=== PATIENT | male | born 1965 | race Caucasian/White ===

== ENCOUNTER 2017-04-11 17:06 | Emergency (ER) | payer OTHER ==
--- NOTE | 2017-04-11 17:27 | CPEKG ---
Heart Rate: 103 RR Interval: 583 P-R Interval: 160 QRSD Interval: 76 QT Interval: 324 QTC Interval: 424 P [place]: 84 QRS [place]: 58 T Wave [place]: 64 EKG Severity - OTHERWISE NORMAL ECG - EKG Impression: SINUS TACHYCARDIA Electronically Signed By: Daniele Akhtar 11-Apr-2017 23:05:56
--- NOTE | 2017-04-11 17:44 | EDPHY ---
HPI/HX/ROS/PE/MDM Narrative: CHIEF COMPLAINT: Chest pain, dyspnea HPI: This patient is a 51-year-old male who presents to the Emergency Department complaining of acute onset dyspnea and chest pain beginning when he stretched his back this afternoon, exacerbating his chronic thoracic back pain. He reports a variety of associated complaints including jaw and tooth pain, headache, and dizziness beginning at the time of the injury and waxing and waning over time. He reports prior episodes of similar chest pain and dyspnea which were all associated with his chronic back pain; last was three years prior to arrival. He states that today's chest pain is more severe than prior episodes. He is evaluated and treated for chronic pain at the [facility]. He takes 20mg methadone PRN. He has not had a prior MRI of his thoracic back. REVIEW OF SYSTEMS: Aside from elements discussed in the HPI, a comprehensive 10-point review of systems was reviewed and is negative. PMH: Chronic thoracic back pain (severity 4/10), chronic fatigue syndrome, PTSD. SOCIAL HISTORY: [place]. 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 PHYSICAL EXAM: General:Patient is alert, in no acute distress. ENT:Eyes are normal to inspection. ENT inspection normal. Neck: Normal inspection. Full range of motion. Respiratory:No respiratory distress. Breath sounds normal bilaterally. Cardiovascular: Regular rate and rhythm. Strong peripheral pulses. Normal cap refill. Abdomen:The abdomen is nontender to palpation. There are no peritoneal signs. There are normal bowel sounds. Back: Normal to inspection. No tenderness to palpation. Skin: Normal color. No rash. Warm and dry. Extremities: Normal appearance. Full range of motion. Neuro: Oriented x3. Normal motor function. Normal sensory function. ED Course: This 51-year-old male presents with complaints of dyspnea and chest pain that he attributes to an exacerbation of his chronic thoracic back pain. His complaints appeared acutely this afternoon and are exertional in nature. He is alert and well appearing at time of arrival. O2 sat is 98% on RA. There are no significant exam findings; lungs are clear, no focal chest wall tenderness. Plan for labs, chest x-ray, and EKG. IV established. 15mg IV Toradol administered. Lidocaine patch placed. Labs obtained: Troponin is negative. D-dimer is negative. WBC elevated at 17.73. 1725: EKG was ordered and interpreted by myself and reveals sinus tachycardia, rate 103. Please see [facility] system for official reading. I discussed results with the patient. He is feeling better following administration of Toradol and placement of Lidoderm patch. He is eager to go home. He will be discharged home in good condition with a Medrol Dosepak. He agrees to follow-up with his PCP for further evaluation as needed and is given customary return precautions prior to discharge. MDM: This patient has a history of chronic back pain and presents with back pain that has radiated around to the anterior aspect of his chest after attempting to stretch out his back. Patient tells me that he has had similar pain in the past and has had is heart extensively checked out which has always prove normal. We performed an extensive workup in the emergency department including EKG, chest x-ray, D-dimer, troponin, all of which are normal. I see no signs of thoracic aortic dissection, pneumonia, pneumothorax, acute coronary syndrome. The patient does have an elevated white blood cell count, which the etiology is unclear. Given the fact that he has otherwise normal workup and normal vital signs here without evidence infection nor any history suggestive of infection, I do not think further workup is indicated. I will treat the patient with a Medrol Dosepak for presumed disc disease. Patient is comfortable with this plan. He agrees to return for any worsening of condition. - Data Points Imaging Results: Imaging Impressions Chest X-Ray 04/11/17 17:38 Impression: 1. Bronchitis/airways disease. 2. No pneumothorax. 3. No definite pneumonia. Laboratory Results: Laboratory Results 04/11/17 17:30 04/11/17 17:30 04/11/17 04/11/17 04/11/17 17:30 17:30 17:30 WBC 17.73 10^3/uL H 10^3/uL (3.80-9.50) RBC 5.47 10^6/uL 10^6/uL (4.40-6.38) Hgb 15.4 g/dL g/dL (13.7-17.5) Hct 45.6 % % (40.0-51.0) MCV 83.4 fL fL (81.5-99.8) MCH 28.2 pg pg (27.9-34.1) MCHC 33.8 g/dL g/dL (32.4-36.7) RDW 14.6 % % (11.5-15.2) Plt Count 255 10^3/uL 10^3/uL (150-400) MPV 10.6 fL fL (8.7-11.7) Neut % (Auto) 73.4 % % (39.3-74.2) Lymph % (Auto) 13.3 % L % (15.0-45.0) [place] % (Auto) 8.7 % % (4.5-13.0) Eos % (Auto) 2.8 % % (0.6-7.6) Baso % (Auto) 1.2 % % (0.3-1.7) Nucleat RBC Rel Count 0.0 % % (0.0-0.2) Absolute Neuts (auto) 13.00 10^3/uL H 10^3/uL (1.70-6.50) Absolute Lymphs (auto) 2.36 10^3/uL 10^3/uL (1.00-3.00) Absolute Monos (auto) 1.55 10^3/uL H 10^3/uL (0.30-0.80) Absolute Eos (auto) 0.50 10^3/uL H 10^3/uL (0.03-0.40) Absolute Basos (auto) 0.21 10^3/uL H 10^3/uL (0.02-0.10) Absolute Nucleated RBC 0.00 10^3/uL 10^3/uL (0-0.01) Immature Gran % 0.6 % % (0.0-1.1) Immature Gran # 0.11 10^3/uL H 10^3/uL (0.00-0.10) D-Dimer < 0.27 ug/mLFEU ug/mLFEU (0.00-0.50) Sodium 136 mEq/L mEq/L (134-144) Potassium 4.3 mEq/L mEq/L (3.5-5.2) Chloride 101 mEq/L mEq/L (97-110) Carbon Dioxide 23 mEq/l mEq/l (22-31) Anion Gap 12 mEq/L mEq/L (8-16) BUN 13 mg/dL mg/dL (7-23) Creatinine 0.8 mg/dL mg/dL (0.7-1.3) Estimated GFR > 60 Glucose 84 mg/dL mg/dL (70-100) Calcium 9.7 mg/dL mg/dL (8.5-10.4) Troponin I < 0.012 ng/mL ng/mL (0-0.034) Medications Given: Discontinued Medications Ketorolac Tromethamine (Toradol) 15 mg IVP EDNOW ONE Stop: 04/11/17 18:08 Last Admin: 04/11/17 18:16 Dose: 15 mg Lidocaine (Lidoderm 5%) 1 ea TD EDNOW ONE Stop: 04/11/17 18:09 Last Admin: 04/11/17 18:16 Dose: 1 ea General Time Seen by Provider: 04/11/17 17:42 Initial Vital Signs: Initial Vital Signs Temperature (C) 37.2 C 04/11/17 17:09 Heart Rate 99 04/11/17 17:09 Respiratory Rate 18 04/11/17 17:09 Blood Pressure 155/103 H 04/11/17 17:09 O2 Sat (%) 98 04/11/17 17:09 O2 Delivery Mode Room Air Allergies/Adverse Reactions: No Known Allergies Allergy (Unverified 04/11/17 17:15) Home Medications: Medication Instructions Recorded Amphet Asp and D/Amphet [Adderall 10 mg PO 04/11/17 10 MG (*)] Citalopram [CeleXA] 20 mg PO 04/11/17 Methadone HCl [Methadone 5 mg (*)] 5 mg PO 04/11/17 methylPREDNISolone [Medrol Dose 1 each PO AD #1 ea 04/11/17 Vaibhav] Departure - Departure Disposition: Home, Routine, Self-Care Clinical Impression: Chest wall pain Chronic back pain Qualifiers: Back pain location: thoracic back pain Back pain laterality: bilateral Qualified Code(s): M54.6 - Pain in thoracic spine Condition: Good Instructions: Chronic Back Pain (ED), Chest Wall Pain (ED) Additional Instructions: Take Medrol as prescribed to treat your pain. Follow-up with your primary care provider for further evaluation in 3-5 days if your symptoms persist. Return to the Emergency Department with worsening shortness of breath, recurrence of your chest pain, severe back pain, or for other serious concerns. Referrals: Wilman Cage DO [Doctor of Osteopathy] - As per Instructions Prescriptions: methylPREDNISolone [Medrol Dose Vaibhav] 1 each PO AD #1 ea Report Scribed for: Daniele Akhtar Report Scribed by: Kavita Metzger Date of Report: 04/11/17 Time of Report: 17:44 Physician Review and Approval Statement: Portions of this note were transcribed by an ED scribe. I personally performed the history, physical exam, and medical decision making; and confirm the accuracy of the information in the transcribed note.
[2017-04-11 17:46] LABS: % IMMATURE GRANULYOCYTES 0.6 % (0.0-1.1); ABSOLUTE IMMATURE GRANULOCYTES 0.11 10^3/uL (0.00-0.10); ADD DIFF? NO; ADD MORPH? NO; ADD SCAN? NO; ATYPICAL LYMPHOCYTE FLAG 0 (0-99); FRAGMENT RBC FLAG 0 (0-99); HEMATOCRIT 45.6 % (40.0-51.0); HEMOGLOBIN 15.4 g/dL (13.7-17.5); LEFT SHIFT FLG 0 (0-99); LIPEMIA HEMOLYSIS FLAG 90 (0-99); MEAN CELL HEMOGLOBIN 28.2 pg (27.9-34.1); MEAN CELL HEMOGLOBIN CONCENTR. 33.8 g/dL (32.4-36.7); MEAN CELL VOLUME 83.4 fL (81.5-99.8); MEAN PLATELET VOLUME 10.6 fL (8.7-11.7); PLATELET CLUMPS FLAG 0 (0-99); PLATELET COUNT 255 10^3/uL (150-400); RED BLOOD CELL COUNT 5.47 10^6/uL (4.40-6.38); RED CELL DISTRIBUTION WIDTH 14.6 % (11.5-15.2)
[2017-04-11 17:54] LABS: ANION GAP 12 mEq/L (8-16); CALCIUM 9.7 mg/dL (8.5-10.4); CARBON DIOXIDE 23 mEq/l (22-31); CHLORIDE 101 mEq/L (97-110); CREATININE 0.8 mg/dL (0.7-1.3); GLOMERULAR FILTRATION RATE > 60; GLUCOSE 84 mg/dL (70-100); POTASSIUM 4.3 mEq/L (3.5-5.2); SODIUM 136 mEq/L (134-144)
[2017-04-11 18:05] LABS: TROPONIN I < 0.012 ng/mL (0-0.034)
[2017-04-11] MEDS ORDERED: KETOROLAC 30 MG/1 ML SDV IVP ONE (18:07)
[2017-04-11] MEDS ORDERED: LIDOCAINE 5% 1 EA PATCH TD ONE (18:08)
[2017-04-11 18:50] VITALS: RESP 16; O2SAT 96
[2017-04-11] MEDS ORDERED: predniSONE 20 MG TAB PO ONE (19:17)
[2017-04-11 19:37] VITALS: BP 121/76; PULSE 70; TEMP 98.4
== END 2017-04-11 19:36 | disposition home or self-care (01) ==
DX: R07.89 Other chest pain (principal); M54.6 Pain in thoracic spine
CPT/HCPCS: 96374; J1885